=== PATIENT | male | born 2000 | race Caucasian/White ===

== ENCOUNTER → 2022-02-10 | Outpatient (CLI) | payer BC ==
--- NOTE | 2022-02-10 19:15 | XR ---
EXAMINATION TYPE: XR Hip Bilateral Complete DATE OF EXAM: 02/10/2022 COMPARISON: NONE HISTORY: 21-year-old male [id number], bilateral hip OA, pain TECHNIQUE: 2 views each side FINDINGS: SI joints are symmetric and intact as is the pubic symphysis. The hips also appear symmetric and inta ct. Joint space maintained. No acute fracture, subluxation, dislocation. IMPRESSION: No acute osseous abnormality seen.
== END | disposition home or self-care (01) ==
LOC: RADXRYALE 14:17
PROVIDERS: ATTEND Internal Medicine
DX: M16.0 Bilateral primary osteoarthritis of hip (principal)
CPT/HCPCS: 73521